=== PATIENT | male | born 1975 | race Caucasian/White ===

== ENCOUNTER 2022-06-04 20:45 | Emergency (ER) | payer OTHER, SELFPAY ==
[2022-06-04 20:46] VITALS: BP 123/74; PULSE 96; RESP 16; TEMP 36.7; O2SAT 98; BMI 31.1
--- NOTE | 2022-06-04 20:52 | XRR_ITS ---
PROCEDURE INFORMATION: Exam: XR Chest Exam date and time: 06/04/2022 9:06 PM Age: 46 years old Clinical indication: Chest wall pain; Additional info: Cp TECHNIQUE: Imaging protocol: Radiologic exam of the chest. Views: 1 view. COMPARISON: CR Chest 1 [place] [id number] 12/01/2016 2:38 PM FINDINGS: Lungs: Unremarkable. No consolidation. Pleural spaces: Unremarkable. No pleural effusion. No pneumothorax. Heart/Mediastinum: Unremarkable. No cardiomegaly. Bones/joints: Unremarkable.
--- NOTE | 2022-06-04 20:52 | W.ED.CHESTPA ---
HPI - Chest Pain General: Chief Complaint: Chest Pain Stated Complaint: CP Time Seen by Provider: 06/04/22 20:52 History of Present Illness: Mr. Wetzel is a 46-year-old gentleman with history of tobaccoism who presents to the emergency department due to chest discomfort. He reports onset of symptoms was 5 PM while at work. He describes crushing chest pain associated with shortness of breath, generalized weakness, lightheadedness and left wrist tightness. It took about an hour of rest to improved to the point that he could drive somewhere and get help. Denies frequent episodes of similar in the past. Only recent change in health was a little bit of blood-tinged vomit earlier today. Denies family history of early cardiac . No other reported risk factors. No other specific changes in health, exacerbating, or alleviating factors identified. Course Vital Signs: Vital signs: Vital Signs Temperature 98.0 F 06/04/22 20:46 Pulse Rate 96 06/04/22 20:46 Respiratory Rate 16 06/04/22 20:46 Blood Pressure 123/74 06/04/22 20:46 Pulse Oximetry 98 06/04/22 20:46 Oxygen Delivery Me thod 06/04/22 20:46 MDM - Chest Pain Lab Data : 06/04/22 21:04 06/04/22 21:04 Radiology Impressions Chest X-Ray 06/04/22 20:52 IMPRESSION: No acute findings. Laboratory Results WBC 12.0 10^3/uL (4.0-10.0) H 06/04/22 21:04 RBC 5.04 10^6/uL (4.1-5.3) 06/04/22 21:04 Hgb 15.0 g/dL (11.7-16.6) 06/04/22 21:04 Hct 45.6 % (42.0-52.0) 06/04/22 21:04 MCV 90.5 fl (80-94) 06/04/22 21:04 MCH 29.8 pg (28.0-34.0) 06/04/22 21:04 MCHC 32.9 g/dL (30.0-36.0) 06/04/22 21:04 RDW 13.2 % (12.1-15.1) 06/04/22 21:04 Plt Count 343 10^3/cmm (130-400) 06/04/22 21:04 MPV 9.7 fL (7.4-10.4) 06/04/22 21:04 Neut % (Auto) 68.7 % 06/04/22 21:04 Lymph % (Auto) 21.1 % 06/04/22 21:04 [place] % (Auto) 9.0 % 06/04/22 21:04 Eos % (Auto) 0.6 % 06/04/22 21:04 Baso % (Auto) 0.3 % 06/04/22 21:04 Neut # (Auto) 8.22 10^3/uL (1.8-7.7) H 06/04/22 21:04 Lymph # (Auto) 2.5 10^3/uL (0.8-4.8) 06/04/22 21:04 [place] # (Auto) 1.1 10^3/uL (0.2-0.9) H 06/04/22 21:04 Eos # (Auto) 0.1 10^3/uL (0.0-0.8) 06/04/22 21:04 Baso # (Auto) 0.0 10^3/uL (0.0-0.1) 06/04/22 21:04 Nucleated RBC % (auto) 0 % 06/04/22 21:04 Nucleated RBCs # 0.0 /100WBC 06/04/22 21:04 Troponin T Baseline 12 ng/L (0-15) 06/04/22 21:04 Discharge Plan Discharge Condition: Stable Referrals: Richard Flores Jr, MD [Primary Care Provider] - Coding Level of Care Code ED Supervisor [employer] for Yaneli Prieto
--- NOTE | 2022-06-11 20:43 | W.ED.CHESTPA ---
HPI - Chest Pain General: Chief Complaint: Chest Pain Stated Complaint: CP Time Seen by Provider: 06/04/22 20:52 History of Present Illness: Incorrect patient entered for encounter. This patient did not present to the emergency department. Course Vital Signs: Vital signs: Vital Signs Temperature 98.0 F 06/04/22 20:46 Pulse Rate 96 06/04/22 20:46 Respiratory Rate 16 06/04/22 20:46 Blood Pressure 123/74 06/04/22 20:46 Pulse Oximetry 98 06/04/22 20:46 Oxygen Delivery Me thod 06/04/22 20:46 MDM - Chest Pain Medical Decision Making Incorrect patient entered for encounter. This patient did not present to the emergency department. Lab Data : 06/04/22 21:04 06/04/22 21:04 Radiology Impressions Chest X-Ray 06/04/22 20:52 IMPRESSION: No acute findings. Laboratory Results WBC Cancelled 06/04/22 21:04 Corrected WBC Cancelled 06/04/22 21:04 RBC Cancelled 06/04/22 21:04 Hgb Cancelled 06/04/22 21:04 Hct Cancelled 06/04/22 21:04 MCV Cancelled 06/04/22 21:04 MCH Cancelled 06/04/22 21:04 MCHC Cancelled 06/04/22 21:04 RDW Cancelled 06/04/22 21:04 Plt Count Cancelled 06/04/22 21:04 MPV Cancelled 06/04/22 21:04 Gran % Cancelled 06/04/22 21:04 Neut % (Auto) Cancelled 06/04/22 21:04 Lymph % (Auto) Cancelled 06/04/22 21:04 [place] % (Auto) Cancelled 06/04/22 21:04 Eos % (Auto) Cancelled 06/04/22 21:04 Baso % (Auto) Cancelled 06/04/22 21:04 Neut # (Auto) Cancelled 06/04/22 21:04 Lymph # (Auto) Cancelled 06/04/22 21:04 [place] # (Auto) Cancelled 06/04/22 21:04 Eos # (Auto) Cancelled 06/04/22 21:04 Baso # (Auto) Cancelled 06/04/22 21:04 Absolute Gran (auto) Cancelled 06/04/22 21:04 Nucleated RBC % (auto) Cancelled 06/04/22 21:04 Nucleated RBCs # Cancelled 06/04/22 21:04 D-Dimer Cancelled 06/04/22 21:17 Sodium Cancelled 06/04/22 21:04 Potassium Cancelled 06/04/22 21:04 Chloride Cancelled 06/04/22 21:04 Carbon Dioxide Cancelled 06/04/22 21:04 Anion Gap Cancelled 06/04/22 21:04 BUN Cancelled 06/04/22 21:04 Creatinine Cancelled 06/04/22 21:04 GFR Calculation Cancelled 06/04/22 21:04 Glucose Cancelled 06/04/22 21:04 Calculated Osmolality Cancelled 06/04/22 21:04 Calcium Cancelled 06/04/22 21:04 Total Bilirubin Cancelled 06/04/22 21:04 AST Cancelled 06/04/22 21:04 ALT Cancelled 06/04/22 21:04 Alkaline Phosphatase Cancelled 06/04/22 21:04 Troponin T Baseline Cancelled 06/04/22 21:04 NT-Pro-B Natriuret Pep Cancelled 06/04/22 21:04 Total Protein Cancelled 06/04/22 21:04 Albumin Cancelled 06/04/22 21:04 Globulin Cancelled 06/04/22 21:04 Discharge Plan Discharge Patient Disposition: Home Condition: Stable Discharge Orders: Discharge ED (Routine); Ordered 06/11/22 Ordered By: [place] Eduardo Referrals: Richard Flores Jr, MD [Primary Care Provider] - Coding Level of Care Code ED [employer] Estimator for Yaneli Prieto
== END 2022-06-04 21:45 | disposition home or self-care (01) ==
LOC: ER 21:22
PROVIDERS: Emergency Provider Emergency Medicine; Family Provider Family Medicine; PCP Family Medicine
DX: Z53.8 Procedure and treatment not carried out for other reasons (principal)
CPT/HCPCS: 71045; 85025

== ENCOUNTER 2023-02-01 08:29 | Outpatient (CLI) | payer OTHER, SELFPAY ==
--- NOTE | 2023-02-01 08:56 | XR_ITS ---
WS: [id number] XR ribs LT mn 3V w CXR1V [id number] REASON FOR EXAM: CHEST PAIN/COUGH FINDINGS: Probable nondisplaced subacute fractures of the left seventh and eighth rib anterolaterally with no u nderlying lung or pleural abnormality. XR/XR ribs LT mn 3V w CXR1V [id number] IMPRESSION: Probable nondisplaced rib fractures as above.
== END 2023-02-01 08:30 | disposition home or self-care (01) ==
LOC: RAD 08:39
PROVIDERS: PCP Internal Medicine; Visit Provider Internal Medicine
DX: R07.9 Chest pain, unspecified (principal); R05.8 Other specified cough
CPT/HCPCS: 71101

== ENCOUNTER 2023-04-09 11:30 | Outpatient (CLI) | payer OTHER, SELFPAY | END 2023-04-09 11:31 | disposition home or self-care (01) | LOC: SLEEP 04-10 12:22 | PROVIDERS: PCP Internal Medicine; Visit Provider Internal Medicine | DX: G47.10 Hypersomnia, unspecified (principal); G47.33 Obstructive sleep apnea (adult) (pediatric) | CPT/HCPCS: G0399 ==

== ENCOUNTER 2023-06-19 10:56 | Outpatient (CLI) | payer OTHER, SELFPAY ==
--- NOTE | 2023-06-19 11:03 | XR_ITS ---
WS: [id number] XR knee RT 3V* [id number] REASON FOR EXAM: PAIN IN R KNEE FINDINGS: No fracture or focal bone lesion. Joint spaces of the right knee are intact and well preserved. No soft tissue abnormality. IMPRESSION: No significant abnormality.
== END 2023-06-19 10:57 | disposition home or self-care (01) ==
PROVIDERS: PCP Internal Medicine; Visit Provider Internal Medicine
DX: M25.561 Pain in right knee (principal)
CPT/HCPCS: 73562